=== PATIENT | male | born 1960 | race Caucasian/White ===

== ENCOUNTER → 2018-06-07 | Day surgery (SDC) | payer BC ==
[2018-06-05 09:08] VITALS: BMI 29.1
[~2018-06-07] MED LIST: LACTATED RINGERS 1,000 ML IV SCH; LIDOCAINE 1% 20 ML VIAL (10MG/ML) FOR IV START INTRADERMA PRN; LIDOCAINE 1% INJ 10MG/ML (20 ML MDV) ONE; PROPOFOL 10 MG/ML 20 ML VIAL IV ONE
[2018-06-07 07:06] VITALS: TEMP 97.7
--- NOTE | 2018-06-07 07:52 | P.GSHP ---
History of Present Illness H&P Date: 06/07/18 Chief Complaint: Screening colonoscopy This a 50-year-old male presents today for screening colonoscopy. Patient denies a significant GI complaints. - Constitutional Constitutional: Reports as per HPI Past Medical History Past Medical History: Thyroid Disorder Additional Past Medical History / Comment(s): blood clot rt arm-2009 possible "thoracic outlet syndrome" History of Any Multi-Drug Resistant Organisms: None Reported Additional Past Surgical History / Comment(s): uvula removed with rhinoplasty, procedure on rt arm blood clot Past Anesthesia/Blood Transfusion Reactions: No Reported Reaction Smoking Status: Never smoker - Past Family History Father Family Medical History: Cancer Additional Family Medical History / Comment(s): lung cancer Medications and Allergies Home Medications Medication Instructions Recorded Confirmed Type Aspirin [Adult Low Dose Aspirin EC] 81 mg PO DAILY 06/05/18 06/07/18 History Cyanocobalamin (Vitamin B-12) 1,000 mcg PO DAILY 06/05/18 06/07/18 History [Vitamin B-12] Gabapentin [Neurontin] 300 mg PO BID 06/05/18 06/07/18 History Ibuprofen [Motrin] 800 mg PO BID 06/05/18 06/07/18 History Thyroid,Pork [[place] Thyroid] 60 mg PO DAILY 06/05/18 06/07/18 History Ubidecarenone [Co Q-10] 100 mg PO DAILY 06/05/18 06/07/18 History Allergies Allergy/AdvReac Type Severity Reaction Status Date / Time No Known Allergies Allergy Verified 06/05/18 08:56 Surgical - Exam Vital Signs Temp Pulse Resp BP Pulse Ox 97.7 F 94 14 125/84 93 L 06/07/18 07:05 06/07/18 07:05 06/07/18 07:05 06/07/18 07:05 06/07/18 07:05 - General well developed, no distress - Eyes PERRL - ENT normal pinna - Neck no masses - Respiratory normal expansion - Cardiovascular Rhythm: regular - Abdomen Abdomen: soft, non tender Assessment and Plan Assessment: We'll perform screening colonoscopy.
--- NOTE | 2018-06-07 08:11 | P.OP ---
Date of Procedure: 06/07/18 Preoperative Diagnosis: Screening colonoscopy Postoperative Diagnosis: Normal colon Procedure(s) Performed: Colonoscopy Anesthesia: MAC Surgeon: Julio Hummel Pathology: none sent Condition: stable Disposition: PACU Description of Procedure: PROCEDURE: The patient was placed on the endoscopy table in the lateral position. Digital rectal examination was performed which revealed no abnormalities. The prostate was symmetrical without nodules. Flexible colonoscope was then placed in the patient's anus and passed throughout the entire colon. The ileocecal valve was visualized. The cecum, ascending, transverse, descending and sigmoid colon were normal. The rectum was normal as well. There were no masses, polyps or diverticula noted in the entire colon. SUMMARY OF FINDINGS: Normal colonoscopy.
[2018-06-07 08:36] VITALS: BP 159/85; PULSE 59; RESP 18
--- NOTE | 2018-06-12 03:06 | CDI ---
Outpatient Documentation Clarification Form Date : 06/12/2018 CDS/Senior Game Designer Name: Dave Ortiz Phone: If any questions, call Luba Gasca Snow Shoveler at [phone] Patient Name: Edmond Sanchez Admit Date: 06/07/2018 Discharge Date: 06/07/2018 ATTENTION: The [facility] Coding Staff appreciate your assistance in clarifying documentation. Please respond to the clarification below the line at the bottom and electronically sign. The [facility] Coding staff will review the response and follow-up if needed. Please note: Queries are made part of the Legal Health Record. Dear Estephanie Irene, Your Operative notes states Normal Colonoscopy However, Pathology report was available with a biopsy specimen as Right Colon biopsy, but the procedure description does not include that a biopsy was performed. Kindly add the description of how the biopsy was performed in an addendum to operative Notes. Thank you for your kind consideration. Operative note addendum made. ALEXX
== END | disposition home or self-care (01) ==
LOC: ORWHC2ENDO 06:45
PROVIDERS: ATTEND Surgery
DX: Z12.11 Encounter for screening for malignant neoplasm of colon (principal); K63.89 Other specified diseases of intestine; Z79.82 Long term (current) use of aspirin; E07.9 Disorder of thyroid, unspecified; Z79.899 Other long term (current) drug therapy; Z79.1 Long term (current) use of non-steroidal anti-inflammatories (NSAID)
CPT/HCPCS: 88305; 45380; J2001; J2704

== ENCOUNTER → 2019-05-06 | Outpatient (CLI) | payer BC ==
[2019-05-06 08:38] LABS: Basophils % (A) 1 %; Eosinophils # (A) 0.4 k/uL (0-0.7); Eosinophils % (A) 8 %; HCT 40.1 % (39.0-53.0); HGB 13.5 gm/dL (13.0-17.5); Lymphocytes % (A) 37 %; MCH 31.7 pg (25.0-35.0); MCHC 33.7 g/dL (31.0-37.0); MCV 94.1 fL (80.0-100.0); Mean Platelet Volume 7.1; Monocytes # (A) 0.3 k/uL (0-1.0); Monocytes % (A) 6 %; Neutrophils # (A) 2.5 k/uL (1.3-7.7); Neutrophils % (A) 47 %; Platelet Count 277 k/uL (150-450); RBC 4.26 m/uL (4.30-5.90); RDW 12.6 % (11.5-15.5); WBC 5.3 k/uL (3.8-10.6)
[2019-05-06 17:52] LABS: African American GFR (CKD) 113.3 (60.0-200.0); Albumin 4.1 g/dL (3.80-4.90); Albumin/Globulin Ratio 1.86 (1.60-3.17); Anion Gap 6.6 mmol/L (4.00-12.00); BUN/Creat Ratio 27.5 Ratio (12.00-20.00); Calcium 9.1 mg/dL (8.7-10.3); Carbon Dioxide 26.4 mmol/L (21.6-31.8); Chol/HDL Ratio 2.76; Globulin 2.2 g/dL (1.6-3.3); LDL Cholesterol,Calculated 93.6 mg/dL (0.0-131.0); Potassium 4.8 mmol/L (3.5-5.5); T4, Free (Free Thyroxine) 0.7 ng/dL (0.80-1.80); Total Bilirubin 0.6 mg/dL (0.3-1.2); Total Protein 6.3 g/dL (6.2-8.2); VLDL Calculation 10.4 mg/dL (5.00-40.00)
[2019-05-06 21:20] LABS: Hemoglobin A1C 5.5 % (4.0-6.0)
== END | disposition home or self-care (01) ==
LOC: LABWHC1 07:32
PROVIDERS: ATTEND Family Medicine
DX: Z00.00 Encounter for general adult medical examination without abnormal findings (principal); E03.9 Hypothyroidism, unspecified; E78.5 Hyperlipidemia, unspecified; R73.9 Hyperglycemia, unspecified; Z12.5 Encounter for screening for malignant neoplasm of prostate
CPT/HCPCS: 84439; 80061; 80053; 84443; 85025; 83036; 36415; G0103; 80074

== ENCOUNTER → 2020-12-06 | Outpatient (CLI) | payer BC, OTHER | END | disposition home or self-care (01) | LOC: LABWHC1 16:51 | PROVIDERS: ATTEND Family Medicine | DX: Z03.818 Encounter for observation for suspected exposure to other biological agents ruled out (principal); Z20.822 Contact with and (suspected) exposure to COVID-19 | CPT/HCPCS: U0003; C9803 ==

== ENCOUNTER → 2024-05-19 | Outpatient (CLI) | payer OTHER ==
[2024-05-19 16:54] LABS: ALT 31 U/L (10-49); AST 24 U/L (14-35); Chol/HDL Ratio 3.65 Ratio; LDL Cholesterol,Calculated 127.1 mg/dL (0.0-131.0)
== END | disposition home or self-care (01) ==
LOC: LABWHC1 07:32
PROVIDERS: ATTEND Family Medicine
DX: E78.5 Hyperlipidemia, unspecified (principal); E03.9 Hypothyroidism, unspecified
CPT/HCPCS: 36415; 80061; 84439; 84443; 84450; 84460